=== PATIENT | male | born 1955 | race Caucasian/White ===

== ENCOUNTER → 2017-06-24 08:36 | Outpatient (CLI) | payer MEDICAID, SELFPAY ==
[2017-06-24 10:34] LABS: ALB/GLOB Ratio 1.1 RATIO (0.9-2.4); AST(SGOT) 14 U/L (15-37); Alanine Aminotransfer ALT/SGPT 32 U/L (16-61); Albumin, Serum 3.5 g/dL (3.2-5.0); Alkaline Phosphatase 89 U/L (45-117); Anion Gap 8 (5-15); BUN 16 mg/dL (7-18); BUN/Creat Ratio 21.1 RATIO (10-20); Calcium,Total 9.3 mg/dL (8.5-10.1); Chloride 104 mmol/L (98-107); Creatinine, Serum 0.76 mg/dL (0.70-1.30); EST Glomerular Filtration Rate 111 mL/min (>60); Est Glom Filt Rate - Afr Amer 134 mL/min (>60); Globulin 3.1 g/dL (2.2-4.2); Glucose 138 mg/dL (74-106); Potassium 4.1 mmol/L (3.5-5.1); Protein, Total 6.6 g/dL (6.4-8.2); Sodium Level 141 mmol/L (136-145)
[2017-06-24 10:38] LABS: Hemoglobin A1c 7.2 % (4.2-6.3)
[2017-06-25 09:35] LABS: Vitamin D,25 Hydroxy 43.9 ng/mL (29.95-100.01)
[2017-06-26 09:44] LABS: PSA, Total 0.5 ng/mL (0.0-4.0)
== END ==
PROVIDERS: Nurse Practitioner; Family Provider Internal Medicine; PCP Internal Medicine; Visit Provider Internal Medicine
DX: E11.9 Type 2 diabetes mellitus without complications (principal); Z79.4 Long term (current) use of insulin; N40.0 Benign prostatic hyperplasia without lower urinary tract symptoms
CPT/HCPCS: 36415; 80053; 82306; 83036; 84153

== ENCOUNTER 2017-07-16 08:47 | Outpatient (RCR) | payer MEDICAID, SELFPAY | END 2017-07-26 23:59 | LOC: NS 08:47 | PROVIDERS: Family Provider Internal Medicine; PCP Internal Medicine; Visit Provider Internal Medicine | DX: E66.9 Obesity, unspecified (principal) | CPT/HCPCS: 97803 ==

== ENCOUNTER 2017-08-14 09:00 | Outpatient (RCR) | payer MEDICAID, SELFPAY | END 2017-08-25 23:59 | LOC: NS 09:00 | PROVIDERS: Family Provider Internal Medicine; PCP Internal Medicine; Visit Provider Internal Medicine | DX: E66.9 Obesity, unspecified (principal); E11.9 Type 2 diabetes mellitus without complications; Z79.4 Long term (current) use of insulin; Z71.3 Dietary counseling and surveillance | CPT/HCPCS: 97803 ==

== ENCOUNTER 2017-09-11 09:00 | Outpatient (RCR) | payer MEDICAID, SELFPAY | END 2017-09-25 23:59 | LOC: NS 09:00 | PROVIDERS: Family Provider Internal Medicine; PCP Internal Medicine; Visit Provider Internal Medicine | DX: E66.9 Obesity, unspecified (principal); E11.9 Type 2 diabetes mellitus without complications; Z79.4 Long term (current) use of insulin; Z71.3 Dietary counseling and surveillance | CPT/HCPCS: 97803 ==

== ENCOUNTER → 2017-10-08 08:28 | Outpatient (CLI) | payer MEDICAID, SELFPAY ==
[2017-10-08 10:51] LABS: Hemoglobin A1c 7.4 % (4.2-6.3)
[2017-10-08 11:23] LABS: ALB/GLOB Ratio 1.1 RATIO (0.9-2.4); AST(SGOT) 11 U/L (15-37); Alanine Aminotransfer ALT/SGPT 27 U/L (16-61); Albumin, Serum 3.5 g/dL (3.2-5.0); Alkaline Phosphatase 93 U/L (45-117); Anion Gap 9 (5-15); BUN 21 mg/dL (7-18); BUN/Creat Ratio 22.9 RATIO (10-20); Calcium,Total 8.9 mg/dL (8.5-10.1); Chloride 105 mmol/L (98-107); Cholesterol 125 mg/dL (200); Creatinine, Serum 0.92 mg/dL (0.70-1.30); EST Glomerular Filtration Rate 89 mL/min (>60); Est Glom Filt Rate - Afr Amer 107 mL/min (>60); Globulin 3.2 g/dL (2.2-4.2); Glucose 212 mg/dL (74-106); High Density Lipoprotein 45 mg/dL; Potassium 4.1 mmol/L (3.5-5.1); Protein, Total 6.7 g/dL (6.4-8.2); Sodium Level 140 mmol/L (136-145); Triglycerides 148 mg/dL; Very Low Density Lipoprotein 30 mg/dL (5-40)
== END ==
PROVIDERS: Family Provider Internal Medicine; PCP Internal Medicine; Visit Provider Nurse Practitioner
DX: I10 Essential (primary) hypertension (principal); E11.9 Type 2 diabetes mellitus without complications; Z79.4 Long term (current) use of insulin
CPT/HCPCS: 36415; 80053; 80061; 83036

== ENCOUNTER → 2017-10-09 08:37 | Outpatient (CLI) | payer MEDICAID, SELFPAY ==
[2017-10-09 09:30] LABS: Microalbumin,Random Urine 12.9 mg/L (NO RANGE EST.); Microalbumin:Creatinine Ratio 10.8 mg/g CRE (<30 mg/g CRE)
== END ==
PROVIDERS: Family Provider Internal Medicine; PCP Internal Medicine; Visit Provider Nurse Practitioner
DX: I10 Essential (primary) hypertension (principal); E11.9 Type 2 diabetes mellitus without complications; Z79.4 Long term (current) use of insulin
CPT/HCPCS: 82043; 82570

== ENCOUNTER 2017-10-09 09:00 | Outpatient (RCR) | payer MEDICAID, SELFPAY | END 2017-10-25 23:59 | LOC: NS 09:00 | PROVIDERS: Family Provider Internal Medicine; PCP Internal Medicine; Visit Provider Internal Medicine | DX: E66.9 Obesity, unspecified (principal); E11.9 Type 2 diabetes mellitus without complications; Z79.4 Long term (current) use of insulin; Z71.3 Dietary counseling and surveillance; I10 Essential (primary) hypertension | CPT/HCPCS: 82043; 82570; 97803 ==

== ENCOUNTER → 2017-10-30 09:30 | Outpatient (CLI) | payer MEDICAID, SELFPAY ==
--- NOTE | 2017-10-30 09:32 | RAD_ITS ---
STUDY: X-RAY - RIGHT HAND REASON FOR EXAM: Pain in middle finger and thumb. TECHNIQUE: 3 view(s) of the hand. COMPARISON: None. FINDINGS: Normal radiocarpal articulation. Normal distal radioulnar joint. Normal visualized carpal bones. Normal carpal articulations. There is joint space narrowing of the carpometacarpal articulation of the thumb. Normal second through fifth carpometacarpal joints. Normal metacarpi. Normal metacarpophalangeal joint of the thumb. Normal interphalangeal joint of the thumb. Normal proximal and distal phalanges of the thumb. There is a small marginal osteophyte of the third metacarpal head and joint space narrowing of the third metacarpophalangeal joint. Normal proximal and distal interphalangeal joints of the second through fifth fingers. Normal phalanges of the second through fifth fingers. There is pericapsular calcification at the ulnar aspect of the fourth distal interphalangeal joint. RAD/Hand Min 3 Views IMPRESSION: Arthrosis of the first carpometacarpal joint and third metacarpophalangeal joint. Pericapsular calcification adjacent to the fourth distal interphalangeal joint. Electronically Signed: Gray Stanton MD at 9:52 EDT Tel , Service support ,
== END ==
PROVIDERS: Family Provider Internal Medicine; PCP Internal Medicine; Visit Provider Orthopaedic Surgery
DX: M19.041 Primary osteoarthritis, right hand (principal); M25.841 Other specified joint disorders, right hand
CPT/HCPCS: 73130

== ENCOUNTER 2017-11-14 09:00 | Outpatient (RCR) | payer MEDICAID, SELFPAY | END 2017-11-25 23:59 | LOC: NS 09:00 | PROVIDERS: Family Provider Internal Medicine; PCP Internal Medicine; Visit Provider Internal Medicine | DX: E66.9 Obesity, unspecified (principal); E11.9 Type 2 diabetes mellitus without complications; Z79.4 Long term (current) use of insulin; Z71.3 Dietary counseling and surveillance | CPT/HCPCS: 97803 ==

== ENCOUNTER 2017-12-11 08:08 | Outpatient (RCR) | payer MEDICAID, SELFPAY | END 2017-12-26 23:59 | LOC: NS 08:08 | PROVIDERS: Family Provider Internal Medicine; PCP Internal Medicine; Visit Provider Internal Medicine | DX: E66.9 Obesity, unspecified (principal); E11.9 Type 2 diabetes mellitus without complications; Z79.4 Long term (current) use of insulin; Z71.3 Dietary counseling and surveillance | CPT/HCPCS: 97803 ==

== ENCOUNTER → 2018-01-20 09:10 | Outpatient (CLI) | payer MEDICAID, SELFPAY ==
[2018-01-20 10:15] LABS: Absolute Lymphocyte Count 2.38 X10^3/ul (0.83-4.51); Absolute Neutrophil Count 4.5 X10^3/uL (2.0-7.7); Basophil# 0.01 X10^3/uL; Basophil% 0.1 % (0-1); Eosinophil# 0.32 X10^3/uL; Eosinophils% 4.1 % (0-5); Hematocrit 42.5 % (40-54); Lymphocyte # 2.38 X10^3/ul (4.0); Lymphocyte % 30.7 % (19-41); Mean Corp Hgb Conc 32.9 g/gl (32-36); Mean Corpuscular Hgb 27.6 pg (27.0-32.0); Mean Corpuscular Volume 83.7 fL (80-94); Monocyte# 0.53 X10^3/uL; Monocyte% 6.8 % (0-10); Neutrophil # 4.48 X10^3/uL (2.7-7.7); Neutrophil % 57.9 % (47-70); Platelet Count 209 K/mm3 (150-450); RBC Distribution Width SD 42.9 fl (35.1-43.9); Red Blood Count 5.08 M/mm3 (4.6-6.2); White Blood Count 7.8 K/mm3 (4.4-11.0)
[2018-01-20 10:16] LABS: POSITIVE COUNT NO; POSITIVE DIFFERENTIAL NO; POSITIVE MORPHOLOGY NO
[2018-01-20 10:27] LABS: Hemoglobin A1c 6.9 % (4.2-6.3)
[2018-01-20 10:30] LABS: PSA,Total - Annual Screen 0.62 ng/mL (0.00-4.00)
[2018-01-20 10:32] LABS: ALB/GLOB Ratio 1.1 RATIO (0.9-2.4); AST(SGOT) 10 U/L (15-37); Alanine Aminotransfer ALT/SGPT 26 U/L (16-61); Albumin, Serum 3.5 g/dL (3.2-5.0); Alkaline Phosphatase 94 U/L (45-117); Anion Gap 7 (5-15); BUN 17 mg/dL (7-18); Calcium,Total 8.8 mg/dL (8.5-10.1); Chloride 104 mmol/L (98-107); Creatinine, Serum 0.74 mg/dL (0.70-1.30); EST Glomerular Filtration Rate 114 mL/min (>60); Est Glom Filt Rate - Afr Amer 138 mL/min (>60); Globulin 3.1 g/dL (2.2-4.2); Glucose 127 mg/dL (74-106); Potassium 4.1 mmol/L (3.5-5.1); Protein, Total 6.6 g/dL (6.4-8.2); Sodium Level 139 mmol/L (136-145)
== END ==
PROVIDERS: Nurse Practitioner; Family Provider Internal Medicine; PCP Internal Medicine; Referring Provider Internal Medicine; Visit Provider Internal Medicine
DX: N40.0 Benign prostatic hyperplasia without lower urinary tract symptoms (principal); E11.9 Type 2 diabetes mellitus without complications; Z79.4 Long term (current) use of insulin; Z12.5 Encounter for screening for malignant neoplasm of prostate
CPT/HCPCS: 36415; 80053; 83036; 84153; 85025; G0103

== ENCOUNTER 2018-01-22 09:00 | Outpatient (RCR) | payer MEDICAID, SELFPAY | END 2018-01-25 23:59 | LOC: DC 09:00 | PROVIDERS: Family Provider Internal Medicine; PCP Internal Medicine; Visit Provider Internal Medicine | DX: E66.9 Obesity, unspecified (principal); E11.9 Type 2 diabetes mellitus without complications; Z79.4 Long term (current) use of insulin; Z71.3 Dietary counseling and surveillance | CPT/HCPCS: 97803; G0108 ==

== ENCOUNTER 2018-02-17 09:00 | Outpatient (RCR) | payer MEDICAID, SELFPAY | END 2018-02-25 23:59 | LOC: NS 09:00 | PROVIDERS: Family Provider Internal Medicine; PCP Internal Medicine; Referring Provider Internal Medicine; Visit Provider Internal Medicine | DX: E66.9 Obesity, unspecified (principal); E11.9 Type 2 diabetes mellitus without complications; Z71.3 Dietary counseling and surveillance; Z68.41 Body mass index [BMI] 40.0-44.9, adult | CPT/HCPCS: 97802; 97803 ==

== ENCOUNTER 2018-03-04 18:30 | Outpatient (RCR) | payer MEDICAID, SELFPAY | END 2018-03-27 23:59 | LOC: DC 18:30 | PROVIDERS: Family Provider Internal Medicine; PCP Internal Medicine; Referring Provider Internal Medicine; Visit Provider Internal Medicine | DX: E66.9 Obesity, unspecified (principal); E11.9 Type 2 diabetes mellitus without complications; Z68.41 Body mass index [BMI] 40.0-44.9, adult; Z71.3 Dietary counseling and surveillance | CPT/HCPCS: 97803; G0109 ==

== ENCOUNTER 2018-04-15 10:30 | Outpatient (RCR) | payer MEDICAID, SELFPAY ==
[2018-01-27 09:33] VITALS: BMI 42.6
== END 2018-04-27 23:59 ==
LOC: NS 10:30
PROVIDERS: Family Provider Internal Medicine; PCP Internal Medicine; Referring Provider Internal Medicine; Visit Provider Internal Medicine
DX: E66.9 Obesity, unspecified (principal); E11.9 Type 2 diabetes mellitus without complications; Z68.41 Body mass index [BMI] 40.0-44.9, adult; Z71.3 Dietary counseling and surveillance
CPT/HCPCS: 97803

== ENCOUNTER → 2018-05-01 07:27 | Outpatient (CLI) | payer MEDICAID, SELFPAY ==
[2018-04-13 09:10] VITALS: BMI 43.1
[2018-05-01 10:40] LABS: Anion Gap 12 (5-15); BUN 19 mg/dL (7-18); BUN/Creat Ratio 25.7 RATIO (10-20); Calcium,Total 8.8 mg/dL (8.5-10.1); Chloride 103 mmol/L (98-107); Cholesterol 145 mg/dL (200); Creatinine, Serum 0.74 mg/dL (0.70-1.30); EST Glomerular Filtration Rate 114 mL/min (>60); Est Glom Filt Rate - Afr Amer 138 mL/min (>60); Glucose 143 mg/dL (74-106); High Density Lipoprotein 45 mg/dL; Potassium 4.1 mmol/L (3.5-5.1); Sodium Level 141 mmol/L (136-145); Triglycerides 134 mg/dL; Very Low Density Lipoprotein 27 mg/dL (5-40)
[2018-05-01 10:42] LABS: Hemoglobin A1c 7.4 % (4.2-6.3); Microalbumin,Random Urine 6.7 mg/L (NO RANGE EST.); Microalbumin:Creatinine Ratio 4.9 mg/g CRE (<30 mg/g CRE)
== END ==
PROVIDERS: Family Provider Internal Medicine; PCP Internal Medicine; Referring Provider Internal Medicine; Visit Provider Internal Medicine
DX: E78.5 Hyperlipidemia, unspecified (principal); E11.9 Type 2 diabetes mellitus without complications; Z79.4 Long term (current) use of insulin
CPT/HCPCS: 36415; 80048; 80061; 82043; 82570; 83036

== ENCOUNTER 2018-05-27 09:00 | Outpatient (RCR) | payer MEDICAID, SELFPAY ==
[2018-04-13 09:10] VITALS: BMI 43.1
[2018-05-05 09:22] VITALS: BMI 43.1
== END 2018-05-28 23:59 ==
LOC: NS 09:00
PROVIDERS: Family Provider Internal Medicine; PCP Internal Medicine; Referring Provider Internal Medicine; Visit Provider Internal Medicine
DX: E66.9 Obesity, unspecified (principal); E11.9 Type 2 diabetes mellitus without complications; Z68.41 Body mass index [BMI] 40.0-44.9, adult; Z71.3 Dietary counseling and surveillance
CPT/HCPCS: 97803

== ENCOUNTER 2018-06-10 15:52 | Outpatient (RCR) | payer MEDICAID, SELFPAY ==
[2018-05-05 09:22] VITALS: BMI 43.1
== END 2018-06-25 23:59 ==
LOC: DC 15:52
PROVIDERS: Family Provider Internal Medicine; PCP Internal Medicine; Referring Provider Internal Medicine; Visit Provider Internal Medicine
DX: E66.01 Morbid (severe) obesity due to excess calories (principal); E11.9 Type 2 diabetes mellitus without complications; Z68.41 Body mass index [BMI] 40.0-44.9, adult; Z71.3 Dietary counseling and surveillance
CPT/HCPCS: G0109

== ENCOUNTER 2018-07-16 09:30 | Outpatient (RCR) | payer MEDICAID, SELFPAY ==
[2018-05-05 09:22] VITALS: BMI 43.1
== END 2018-07-26 23:59 ==
LOC: NS 09:30
PROVIDERS: Family Provider Internal Medicine; PCP Internal Medicine; Referring Provider Internal Medicine; Visit Provider Internal Medicine
DX: E66.01 Morbid (severe) obesity due to excess calories (principal); E11.9 Type 2 diabetes mellitus without complications; Z68.41 Body mass index [BMI] 40.0-44.9, adult; Z71.3 Dietary counseling and surveillance
CPT/HCPCS: 97803; G0109

== ENCOUNTER 2018-08-19 09:30 | Outpatient (RCR) | payer MEDICAID, SELFPAY ==
[2018-07-13 09:38] VITALS: BMI 43.1
== END 2018-08-25 23:59 ==
LOC: NS 09:30
PROVIDERS: Family Provider Internal Medicine; PCP Internal Medicine; Referring Provider Internal Medicine; Visit Provider Internal Medicine
DX: E66.01 Morbid (severe) obesity due to excess calories (principal); E11.9 Type 2 diabetes mellitus without complications; Z68.41 Body mass index [BMI] 40.0-44.9, adult; Z71.3 Dietary counseling and surveillance
CPT/HCPCS: 97803

== ENCOUNTER 2018-08-27 16:02 | Outpatient (RCR) | payer MEDICAID, SELFPAY ==
[2018-07-13 09:38] VITALS: BMI 43.1
== END 2018-08-27 23:59 | disposition home or self-care (01) ==
LOC: DC 16:02
PROVIDERS: Family Provider Internal Medicine; PCP Internal Medicine; Referring Provider Internal Medicine; Visit Provider Internal Medicine
DX: E66.01 Morbid (severe) obesity due to excess calories (principal); E11.9 Type 2 diabetes mellitus without complications; Z68.41 Body mass index [BMI] 40.0-44.9, adult; Z71.3 Dietary counseling and surveillance
CPT/HCPCS: G0109

== ENCOUNTER → 2019-03-05 17:53 | Outpatient (CLI) | payer MEDICAID, SELFPAY ==
[2018-07-13 09:38] VITALS: BMI 43.1
[2019-03-05 20:58] LABS: M R Staph aureus DNA By PCR Negative (Negative); Probe Check PASS; Specimen Processing Control PASS; Staph aureus DNA By PCR NEGATIVE (Negative)
== END ==
PROVIDERS: Family Provider Internal Medicine; PCP Internal Medicine; Referring Provider Podiatrist; Visit Provider Podiatrist
DX: L97.512 Non-pressure chronic ulcer of other part of right foot with fat layer exposed (principal)
CPT/HCPCS: 87070; 87075; 87077; 87186; 87205; 87640

== ENCOUNTER 2021-02-21 13:30 | Outpatient (RCR) | payer MEDICARE, MEDICAID, SELFPAY ==
--- NOTE | 2021-01-10 14:20 | HP.OTEVAL ---
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 Date of Evaluation: 01/10/21 Occupational Therapist: Lisa Jimenez, OTR/L, CHT - Subjective This 65 year old male was see for OT eval with dx of right Primary osteoarthritis - unilateral primary osteoarthritis of 1st carpometacarpal joint right hand. - pt states he had issues with his right hand for 4-5 years of difficulty. pt decided to have sx 12/20/20. pt underwent a cmc arthroplasty with ligament reconstruction- pt did have right MF MPJ replacement. pt denies pain just would like to return to using right hand to perform [employer] work. - ROM Wrist: right 45/30 left 60/50 CMC: right 10 left 10 MP: right 35 left 50 IP: right 50 left 55 Radial Abduction: right 30 left 45 MP: right MF 0/30* left 0/90* PIP: right MF 0/90* left 100* DIP: WNL - Strength Administration Intern: right NT left 90# Lateral Pinch: right NT left 26# Tripod Pinch: right NT left 20# - Sensation Sensation Comments: denies - Quick DASH-Disab of Arm,Shoulder& Hand Quick DASH Score: 11.3625 - Goals Goal:100% adherence to protocol: Yes Comment: Dr. Wagoner's cmc arthroplasty protocol/ MPJ arthroplasty protocol Goal:Daily scar massage when approriate: Yes Goal:ROM equal to unaffected hand: Yes Goal:Administration Intern/Pinch strength at least 75% of unaffected hand: Yes Goal:Full use of affected hand in daily activities including: Yes - Rehabilitation General Assessment: pt is 3 weeks s/p from a right CMC arthroplasty and right MF MCJ replacement. Pt limited with ROM and strength due to newly healing structures. pt demo need for skilled OT services 1-2x week for 6-8 weeks to ensure pts return to PLOF. Today therapist reviewed with pt CMC arthroplasty protocol, scar mtg, need of orthosis. pt demo understanding and agree to POC Rehabilitation Potential: Excellent - Anticipated Interventions A/AAROM/PROM, Strengthening, Scar Care, Triggerpoint Release, Modalities, Orthoses, Joint Protection/Energy Conservation, Ergonomic Education, Fine Motor Coord/Denny - Visit Plan Frequency: 1-2x /Week Duration: 2 Months General Plan: Dr. Wagoner CMC arthroplasty. Week 2: exercise- AROM performed for digits and thumb IP joint only- initiate scar mtg. Week 4: Begin AROM exercises for wrist thumb CMC- joint- cont. scar mtg/edema control (modalities as indicated for pain and edema. Week 6: splint D/C and issue comfort cool fitted splint if needed- discontinue splint by 8 weeks post-operative except may wear during heavy activates pm. Exercise: start gentle strengthening(thera-putty), progress as tolerated. Progress to wrist strengthening and heavier prehension tasks at 8 weeks post-operative. Avoid forceful extension of thumb. Expectations: Most patients are treated with a Home Program and checked after each MD visit for program progression 2x weekly for 4-6 weeks for symptomatic patients or those returning to heavier work demands. 2 months to resume normal activities, 3 months for strenuous. 3-6 months to reach optimum results. slight decrease in pinch and economic geographer strength. generally, gain 70% of strength and motion of unoperated hand. TEXT: Thank you for the opportunity to evaluate your patient. For Medicare and Medicare HMO plans, please review the plan of care and approve it. It will need to be FAXED BACK to us at [phone] for Medicare purposes. Please let me know if there are questions or concerns regarding this plan of care. Physician Signature: Date:
--- NOTE | 2021-02-21 14:19 | HP.OTDCSUM_ITS ---
It has been my pleasure to treat RACHEL VALDEZ under orders from ROBIN ZHOU, for the diagnosis of primary osteoarthritis/ unilateral primary osteoarthritis of 1st CMC joint for a total of 7 visit(s). Please see the following information for a summary of their discharge status. % Improvement: 80 Objective/Function: pt demo the ability to for a composite fist. pt reports he is IND with ADLs and IADls at this time- pt reports he thinks about his hand prior to doing ADLs-. right CMC 10*. right MP 40*. right IP 60*. right MF MCP 0/70*. 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 at this time pt has met OT goals and is d.c with HEP. pt agrees with POC Patient Goals: Use Hand/Wrist/Arm Normally Again, Be More Independent in ADLS Goal:100% adherence to protocol: Yes Goal:Daily scar massage when approriate: Yes Goal:ROM equal to unaffected hand: Yes Goal:Medical Care Evaluation Specialist/Pinch strength at least 75% of unaffected hand: Yes Goal:Full use of affected hand in daily activities including: Yes Plan: Cont POC Discharge Comments: pt was seen for 7 OT visits. pt has gained ROM and strength- pt reports his hand does not stop him from doing ADls but makes him slow down. pt states he is 80% improvement. pt has met goals and is D.c at this time with HEP. If there are questions or concerns regarding this patient's occupational therapy, please fell free to call me at [phone]. Thank you for the referral of this patient. Sincerely, Lisa Jimenez, OTR/L, CHT
== END 2021-02-21 19:00 | disposition home or self-care (01) ==
LOC: OT 13:30
PROVIDERS: PCP Family Medicine
DX: M19.041 Primary osteoarthritis, right hand (principal); M18.11 Unilateral primary osteoarthritis of first carpometacarpal joint, right hand
CPT/HCPCS: 97110; 97140; 97166; 97530

== ENCOUNTER 2024-07-20 14:00 | Outpatient (RCR) | payer MEDICARE, MEDICAID, SELFPAY ==
--- NOTE | 2024-06-16 15:27 | HP.OTEVAL ---
Patient's Visit Information Visit Information Visit Information: RACHEL VALDEZ is a 68 year old M, referred to Occupational Therapy by LIONEL Jurado, with a diagnosis of primary OA of R hand as well as arthritis of L hand. Date of Evaluation: 06/16/24 Occupational Therapist: Ramona Mckeon Subjective Subjective: This 68 year old male arrives with dx of primary OA of R hand, arthritis L hand. Pt has had surgery to R hand cmc arthroplasty as well as MF MP replacement in 2019. pt reports he has also had carpal tunnel release to B hands as well as trigger finger release to B MFs. pt presents with B hand pain and especially stiffness in L hand MF. Pt states he can use either hand no dominant side. Pt reports extreme cold in B hands and lack of feeling. pt has been wear copper fit gloves at night and helps slightly. pt works for [employer]. pt is dx with polynueropathy. Pain L hand: Current Pain Intensity: 5 R hand: Current Pain Intensity: 5 ROM Forearm: wfl Wrist: wfl CMC: wfl MP: wfl IP: wfl Radial Abduction: wfl Palmar Abduction: wfl Opposition: wfl MP: wfl PIP: wfl DIP: wfl ROM Comments: R hand thumb tremor increases with stress and use Strength Rocket Engine Component Mechanic: R 60# L 70# Lateral Pinch: R 5# L 13# Tripod Pinch: R 5# L 12# Edema Other: none Sensation Sensation Comments: R hand IF 3.84, MF 4.31, RF 4.08 LF 2.83 L hand IF and MF 3.22, RF 3.62 LF 2.83 Nine Hole Peg Right: 47 sec Left: 28 sec Quick DASH-Disab of Arm,Shoulder& Hand Quick DASH Score: 20.4525 Goals Goal:Rocket Engine Component Mechanic/Pinch strength at least 75% of unaffected hand: Yes Goal:No pain with affected hand use: Yes Goal:Full use of affected hand in daily activities including work: Yes Goal:Improvement in sensation documented by [place]-Della monofiliaments: Yes Comment: quick dash Other Goal: pt will improve quick dash score by 5 points or more in order to improve functional use of BUEs pt will improve R hand 9 hole peg assessment by 10 sec or more (47 sec) in order to improve I in day to day tasks pt will verbalize/ demonstrate 100% accuracy in proper joint protection/ positioning to decrease pain improve functional use of BUEs pt will demonstrate 100% accuracy in B hand HEP by discharge Rehabilitation General Assessment: This 68 year old male arrives with dx of primary OA of R hand and arthritis of L hand. 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 pt would benefit from OT services 1x a week for 4-6 weeks to address above impairments and return to functional use of B hands. Rehabilitation Potential: Good Anticipated Interventions Anticipated Interventions: A/AAROM/PROM, Strengthening, Triggerpoint Release, Modalities, Orthoses, Joint Protection/Energy Conservation, Fine Motor Coord/Denny, Education re Diagnosis and Home Program Visit Plan Frequency: 1x/Week Duration: 4-6 Weeks General Plan: AROM/AAROM joint protection isometrics strengthening pain management TEXT: Thank you for the opportunity to evaluate your patient. For Medicare and Medicare HMO plans, please review the plan of care and approve it. It will need to be FAXED BACK to us at [phone] for Medicare purposes. Please let me know if there are questions or concerns regarding this plan of care. Physician Signature: Date:
--- NOTE | 2024-07-20 14:39 | HP.OT.NRP ---
Patient Information Patient Information: RACHEL VALDEZ was seen in my office for initial evaluation on 06/16/24. The following Plan of Care was established for this patient: POC Established Initial Frequency: 1x/Week Initial Duration: 4-6 Weeks Plan: tendon glide median nerve glide strengthening Anticipated Interventions Anticipated Interventions: A/AAROM/PROM, Strengthening, Triggerpoint Release, Modalities, Orthoses, Joint Protection/Energy Conservation, Fine Motor Coord/Denny, Education re Diagnosis and Home Program Last Seen Last Seen: This patient was last seen in our office 07/20/24. Pertinent comments regarding their Occupational therapy will appear below: This 68 year old male with dx of OA of B hands progressed in POC in strength as well as functional use. discharge at this time with pt in agreeance. At this point I will be discontinuing this patient from occupational therapy. I would be happy to see this patient again in the future if found appropriate by the physician. Thank you! Ramona Mckeon
--- NOTE | 2024-07-20 14:40 | HP.OTDCSUM_ITS ---
Discharge Summary D/C Summary: It has been my pleasure to treat RACHEL VALDEZ under orders from LIONEL Jurado, for the diagnosis of primary OA of R hand as well as arthritis of L hand for a total of 6 visit(s). Please see the following information for a summary of their discharge status. Overall Improvement % Improvement: 65 Objective Objective/Function: R 60# L 80# R lateral pinch 5# L 12# R tripod 5# L 10# R hand MF LF 3.84 RF 4.08 thumb and IF 4.17 L hand all fingers 3.61 Goals Patient Goals: Regain Mobility, Regain Strength, Decrease Pain, Decrease Swell ing/Stiffness, Improve Fine Motor Skills, Use Hand/Wrist/Arm Normally Again, Decrease Tingling/Numbness, Resume Former Household Responsibilities (Cooking,Cleaning,Yard, etc.) and Resume Hobbies Goal:Gymnastics Instructor/Pinch strength at least 75% of unaffected hand: Yes Goal Progress: not met Goal:No pain with affected hand use: Yes Goal Progress: Goal Met Goal:Full use of affected hand in daily activities including work: Yes Goal Progress: Goal Met Goal:Improvement in sensation documented by [place]-Della monofiliaments: Yes Goal Progress: not emt Other Goal: pt will improve quick dash score by 5 points or more in order to improve functional use of BUEs goal met pt will improve R hand 9 hole peg assessment by 10 sec or more (47 sec) in order to improve I in day to day tasks pt will verbalize/ demonstrate 100% accuracy in proper joint protection/ positioning to decrease pain improve functional use of BUEs goal met pt will demonstrate 100% accuracy in B hand HEP by discharge goal met Plan Plan: tendon glide median nerve glide strengthening D/C Information Discharge Comments: This 68 year old male with dx of OA of B hands progressed in POC in strength as well as functional use. discharge at this time with pt in agreeance. d/c sentence: If there are questions or concerns regarding this patient's occupational therapy, please fell free to call me at [phone]. Thank you for the referral of this patient. Sincerely, Ramona Mckeon
== END 2024-07-20 19:00 | disposition home or self-care (01) ==
LOC: OT 14:00
PROVIDERS: PCP Family Medicine; Referring Provider Nurse Practitioner Family; Visit Provider Nurse Practitioner Family
DX: M19.041 Primary osteoarthritis, right hand (principal); M19.042 Primary osteoarthritis, left hand
CPT/HCPCS: 97110; 97140; 97166; 97530